=== PATIENT | male | born 1995 | race Two or more races ===

== ENCOUNTER 2022-02-20 17:58 | Emergency (ER) | payer SELFPAY | END 2022-02-20 19:30 | disposition home or self-care (01) | LOC: FER 17:58 | DX: S51.812A Laceration without foreign body of left forearm, initial encounter (principal); Z23 Encounter for immunization; W25.XXXA Contact with sharp glass, initial encounter; Y92.009 Unspecified place in unspecified non-institutional (private) residence as the place of occurrence of the external cause; Z28.310 Unvaccinated for COVID-19 | CPT/HCPCS: 73090; 90471; 90715 ==